=== PATIENT | female | born 1945 | race Two or more races ===

== ENCOUNTER 2016-11-24 08:18 | Inpatient (IN) | payer MEDICAID, MEDICARE ==
[2016-11-24] MEDS ORDERED: SODIUM CHLORIDE 0.9% 3 ML FLUSH FLUSH PRN ×2 (09:14→12:49)
[2016-11-24] MEDS ORDERED: NS 1,000 ML IV ONE ×2 (09:14)
--- NOTE | 2016-11-24 09:25 | EDPRACDOC ---
- General Information Information Source: Patient - History of Present Illness Onset: 2-3 DAYS HPI: COUGH CONGESTION FEVERS CHILLS SOB FOR 2-3 DAYS. PT STATES SHE JUST DOESNT FEEL GOOD. Shortness of Breath: Mild Relevant History: Reports: None Cough: Reports: Non-productive Rhinorrhea: Reports: None Ear Symptoms: Reports: None SOB Worsens with: Reports: Exertion, Coughing SOB Improves with: Reports: Nothing Associated Signs and symptoms: Reports: Cough, Fever, Other (SOB, WEAKNESS) <Rigo Guerrero - Last Filed: 11/24/16 11:56> <Gt Garza - Last Filed: 11/24/16 12:18> - General Information Chief Complaint: Fever Stated Complaint: FEVER/ COUGH Time Seen by Provider: 11/24/16 09:12 Home Medications: Home Medications Simvastatin 40 mg PO HS 02/16/13 Aspirin [Aspirin EC] 81 mg PO DAILY 07/06/14 Allergies/Adverse Reactions: Allergies Allergy/AdvReac Type Severity Reaction Status Date / Time No Known Allergies Allergy Verified 09/06/15 19:26 ED Past Medical History - History Reviewed Yes Nurses notes reviewed and agree except as marked Travel Outside of [place] in the Last 3 Months?: No - Patient Medical History Cardiac History: Reports: Hypercholesterolemia Musculoskeletal History: Reports: Arthritis Psychological History: Denies: Depression Systemic History: Denies: Cancer Surgical History: Reports: Cholecystectomy - Family Medical History Reports: Diabetes, Cardiac Disorders - Social Medical History Smoking Status: Never smoker ETOH: None Substance Abuse: None Lives With: Other Lives In: Home <Rigo Guerrero - Last Filed: 11/24/16 11:56> EDM Review of Systems - Review of Systems ROS Negative Except as Marked: Yes All systems reviewed and were negative except as marked Constitutional: Chills, Fever, Weakness. negative: Fatigue, Loss of Appetite Eyes: No Symptoms Reported. negative: Redness, Blurred Vision, Double Vision, Discharge, Pain, Light Sensitive, Photophobia Ears: No Symptoms Reported. negative: Pain, Hearing Loss, Drainage, Ear Pulling Throat: No Symptoms Reported. negative: Pain, Swelling Nose: No Symptoms Reported. negative: Congestion, Bleeding, Discharge, Injection, Swelling, Deformity, Ecchymosis, Tender, Abrasion, Laceration Mouth: No Symptoms Reported. negative: Pain, Drooling Respiratory: Cough, Shortness of Breath. negative: Barky Cough, Brassy Cough, Hemoptysis, Wheezing Cardiovascular: No Symptoms Reported. negative: Chest Pain, Palpitations, Syncope, Edema, Orthopnea, PND, Skin Mottling, Cyanosis Gastrointestinal: No Symptoms Reported. negative: Pain, Constipation, Nausea, Vomiting, Diarrhea, Melena, Formula Intolerance Genitourinary: No Symptoms Reported. negative: Dysuria, Hematuria, Frequency, Discharge, Bleeding, Testicular Pain, Neurological: No Symptoms Reported. negative: Headache, Dizziness, Seizure, Numbness, Weakness, Speech Difficulty, Gait Difficulty Musculoskeletal: No Symptoms Reported. negative: Neck, Chestwall, Ribs, Back, Shoulder, Arm, Elbow, Forearm, Wrist, Hand, Pelvis, Hip, Femur, Knee, Leg, Ankle , Foot Integumentary: No Symptoms Reported. negative: Itching, Rash, Bruising, Wound Allergic/Immunologic: No Symptoms Reported. negative: Hives, Itching Hematologic: No Symptoms Reported. negative: Lymphadenopathy, Easy Bruising, Easy Bleeding Endocrine: No Symptoms Reported. negative: Weight Gain, Weight Loss Psychiatric: No Symptoms Reported. negative: Anxiety, Depression, Hallucinations, Insomnia, Suicidal <Rigo Guerrero - Last Filed: 11/24/16 11:56> - Physical Exam Constitutional: No apparent distress, Alert (Awake) Oriented to: Time, Person, Place Last recorded Vital Signs: Last Vital Signs Temp 99.7 F 11/24/16 08:32 Pulse 114 11/24/16 08:32 Resp 18 11/24/16 08:32 BP 160/77 11/24/16 08:32 Pulse Ox 92 11/24/16 08:32 Oxygen Pulse Oxygen Saturation 92 O2 Device Room Air Oxygen Flow Rate Fraction of Inspired Oxygen ( FIO2) - HEENT Head: Normal ( normocephalic) Eye Exam: Normal (PERRL, EOMI, Sclera white) Oropharynx: Normal (Pharynx:Moist without exudate,Gums-no swelling) Tympanic Membrane: Normal ENT EAC: Normal TMJ: Normal Nose: No Symptoms Reported (septum midline) Neck: Normal (FROM, trachea at midline) - Respiratory/Cardiovascular Respiratory: Diminished Cardiovascular: Tachycardia - GI Auscultation: Normal (NABS) Palpation: Normal (Soft,No rebound or guarding, non distended) Tenderness: Non tender Qiu's Sign: Negative - Musculoskeletal Back: Normal (Non-Tender) Extremities: Normal (Normal tone, Pulses 2+ No cyanosis or edema, FROM) - Integumentary Skin: Normal, Warm, Dry Lymphatics: Normal (no adenopathy) - Neurologic Memory Impaired: Normal Motor Function: Normal (Normal tone, Pulses 2+ No cyanosis or edema, FROM) Cranial Nerve: Normal (CN II-X11 intact sensation, strength 5/5) Cerebellar: Normal Mood Description: Normal Perception: Normal <Rigo Guerrero - Last Filed: 11/24/16 11:56> - Physical Exam Last recorded Vital Signs: Last Vital Signs Temp 99.7 F 11/24/16 08:32 Pulse 106 11/24/16 11:10 Resp 18 11/24/16 11:10 BP 186/81 H 11/24/16 11:10 Pulse Ox 96 11/24/16 11:10 Oxygen Pulse Oxygen Saturation 96 O2 Device Room Air Oxygen Flow Rate Fraction of Inspired Oxygen ( FIO2) <Gt Garza - Last Filed: 11/24/16 12:18> ED SOB MDM - Differential Diagnosis Differential Diagnosis: Heart Failure, Pnuemonia, Respiratory Failure, Respiratory Insufficiency - Results Result Diagrams: 11/24/16 10:00 11/24/16 09:30 - EKG EKG #1 EKG Time: 08:37 -: Yes EKG interpreted by me Rate: bpm: 113 Theresa: Normal Rhythm: ST Block: None Hypertrophy: LVH ST: Normal - Diagnostic Imaging CXR Image interpreted by: Radiologist Diagnostic Imaging Comments: IMPRESSION: Low volumes. No definite acute disease. <Rigo Guerrero - Last Filed: 11/24/16 11:56> - Results Result Diagrams: 11/24/16 10:00 11/24/16 09:30 Results: WBC 12.0 xk/uL (3.8-10.8) H 11/24/16 10:00 RBC 4.99 xM/uL (4.20-5.40) 11/24/16 10:00 Hgb 14.7 g/dL (12.0-16.0) 11/24/16 10:00 Hct 42.8 % (36-47) 11/24/16 10:00 MCV 86 fL (81-99) 11/24/16 10:00 MCH 29.5 pg (27-32) 11/24/16 10:00 MCHC 34.3 g/dl (33-36) 11/24/16 10:00 RDW 13.4 % (11.5-14.5) 11/24/16 10:00 Plt Count 246 xk/uL (130-400) 11/24/16 10:00 MPV 9.1 fL (7.4-10.4) 11/24/16 10:00 Neut % (Auto) 86.1 % (45-76) H 11/24/16 10:00 Lymph % (Auto) 3.6 % (17-44) L 11/24/16 10:00 [place] % (Auto) 10.0 % (3-10) 11/24/16 10:00 Eos % (Auto) 0.0 % (0-5) 11/24/16 10:00 Baso % (Auto) 0.3 % (0-2) 11/24/16 10:00 Absolute Neuts (auto) 10.32 xk/uL (1.7-8.2) H 11/24/16 10:00 Absolute Lymphs (auto) 0.36 xk/uL (0.65-4.75) L 11/24/16 10:00 PT 10.7 SEC (9.2-11.2) 11/24/16 10:00 INR 1.0 11/24/16 10:00 APTT 28.3 SEC (22-35) 11/24/16 10:00 Puncture Site Right radial 11/24/16 09:37 pH 7.470 pH UNITS (7.35-7.45) H 11/24/16 09:37 pCO2 34.0 mmHg (35-45) L 11/24/16 09:37 pO2 66.0 mmHg (80-100) L 11/24/16 09:37 HCO3 24.7 MMOL/L (22-26) 11/24/16 09:37 Total CO2 25.7 MMOL/L (23-27) 11/24/16 09:37 Base Excess 1.5 (+/- 2) 11/24/16 09:37 FiO2 % 21% 11/24/16 09:37 Specimen Drawn By Si 11/24/16 09:37 Sodium 138 mEq/L (137-146) 11/24/16 09:30 Potassium 3.7 mEq/L (3.5-5.1) 11/24/16 09:30 Chloride 101 mEq/L (98-107) 11/24/16 09:30 Carbon Dioxide 23 mMOL/L (22-33) 11/24/16 09:30 Anion Gap 18 mEq/L (8-16) H 11/24/16 09:30 BUN 19 MG/DL (7-17) H 11/24/16 09:30 Creatinine 0.60 MG/DL (0.52-1.04) 11/24/16 09:30 Estimated GFR (MDRD) > 60 mL/min (>=60) 11/24/16 09:30 Glucose 174 mg/dL (70-99) H 11/24/16 09:30 Calculated Osmolality 272 MOs/Kg (270-290) 11/24/16 09:30 Lactic Acid 2.6 mEq/L (0.7-2.1) H 11/24/16 10:00 Calcium 9.1 MG/DL (8.4-10.2) 11/24/16 09:30 Total Bilirubin 0.7 MG/DL (0.2-1.3) 11/24/16 09:30 AST 42 IU/L (14-36) H 11/24/16 09:30 ALT 46 IU/L (9-52) 11/24/16 09:30 Alkaline Phosphatase 96 IU/L (55-165) 11/24/16 09:30 Troponin I < 0.01 ng/mL (<.04) 11/24/16 09:30 Tgj-C-Hlqgfsvkxlm Pept 972 pg/mL (0-900) H 11/24/16 09:30 Total Protein 8.5 G/DL (6.3-8.2) H 11/24/16 09:30 Albumin 4.4 G/DL (3.5-5.0) 11/24/16 09:30 Urine Color Yellow 11/24/16 09:20 Urine Clarity Cldy 11/24/16 09:20 Urine pH 5.0 (5.0-8.0) 11/24/16 09:20 Ur Specific [place] 1.020 (1.003-1.035) 11/24/16 09:20 Urine Protein 2+ (NEG/TRACE) H 11/24/16 09:20 Urine Glucose (UA) Neg (NEGATIVE) 11/24/16 09:20 Urine Ketones Neg (NEGATIVE) 11/24/16 09:20 Urine Occult Blood 3+ (NEG/TRACE) H 11/24/16 09:20 Urine Nitrite Neg (NEGATIVE) 11/24/16 09:20 Urine Bilirubin Neg (NEGATIVE) 11/24/16 09:20 Urine Urobilinogen <2.0 MG/DL (0-1) 11/24/16 09:20 Ur Leukocyte Esterase Neg (NEGATIVE) 11/24/16 09:20 Urine RBC 10-20 (0-5) H 11/24/16 09:20 Urine WBC 10-20 (0-5) H 11/24/16 09:20 Urine WBC Clumps Present (NONE) H 11/24/16 09:20 Urine Bacteria 2+ (NEG/FEW) H 11/24/16 09:20 Urine Mucus Occ (NEG/OCC) 11/24/16 09:20 Lab Results 11/24/16 11/24/16 11/24/16 10:00 10:00 10:00 WBC 12.0 H RBC 4.99 Hgb 14.7 Hct 42.8 MCV 86 MCH 29.5 MCHC 34.3 RDW 13.4 Plt Count 246 MPV 9.1 Neut % (Auto) 86.1 H Lymph % (Auto) 3.6 L [place] % (Auto) 10.0 Eos % (Auto) 0.0 Baso % (Auto) 0.3 Absolute Neuts (auto) 10.32 H Absolute Lymphs (auto) 0.36 L PT 10.7 INR 1.0 APTT 28.3 Puncture Site pH pCO2 pO2 HCO3 Total CO2 Base Excess FiO2 % Specimen Drawn By Sodium Potassium Chloride Carbon Dioxide Anion Gap BUN Creatinine Estimated GFR (MDRD) Glucose Calculated Osmolality Lactic Acid 2.6 H Calcium Total Bilirubin AST ALT Alkaline Phosphatase Troponin I Aip-C-Koujvxvrnkr Pept Total Protein Albumin Urine Color Urine Clarity Urine pH Ur Specific [place] Urine Protein Urine Glucose (UA) Urine Ketones Urine Occult Blood Urine Nitrite Urine Bilirubin Urine Urobilinogen Ur Leukocyte Esterase Urine RBC Urine WBC Urine WBC Clumps Urine Bacteria Urine Mucus 11/24/16 11/24/16 11/24/16 09:37 09:30 09:20 WBC RBC Hgb Hct MCV MCH MCHC RDW Plt Count MPV Neut % (Auto) Lymph % (Auto) [place] % (Auto) Eos % (Auto) Baso % (Auto) Absolute Neuts (auto) Absolute Lymphs (auto) PT INR APTT Puncture Site Right radial pH 7.470 H pCO2 34.0 L pO2 66.0 L HCO3 24.7 Total CO2 25.7 Base Excess 1.5 FiO2 % 21% Specimen Drawn By Si Sodium 138 Potassium 3.7 Chloride 101 Carbon Dioxide 23 Anion Gap 18 H BUN 19 H Creatinine 0.60 Estimated GFR (MDRD) > 60 Glucose 174 H Calculated Osmolality 272 Lactic Acid Calcium 9.1 Total Bilirubin 0.7 AST 42 H ALT 46 Alkaline Phosphatase 96 Troponin I < 0.01 Fqs-X-Bxwljqwwkzo Pept 972 H Total Protein 8.5 H Albumin 4.4 Urine Color Yellow Urine Clarity Cldy Urine pH 5.0 Ur Specific [place] 1.020 Urine Protein 2+ H Urine Glucose (UA) Neg Urine Ketones Neg Urine Occult Blood 3+ H Urine Nitrite Neg Urine Bilirubin Neg Urine Urobilinogen <2.0 Ur Leukocyte Esterase Neg Urine RBC 10-20 H Urine WBC 10-20 H Urine WBC Clumps Present H Urine Bacteria 2+ H Urine Mucus Occ <Gt Garza - Last Filed: 11/24/16 12:18> - Departure Education/Counseling Given To: Patient Education/Counseling Given Regarding: Diagnosis, Treatment, Prognosis, Follow Up <Rigo Guerrero - Last Filed: 11/24/16 11:56> - Departure Yes I personally saw and evaluated the patient. Disposition: Admit IP To This Hospital Decision to Admit Time: 12:04 Decision to admit date: 11/24/16 Decision to admit: from ED - Physician Consulted Hospitalist Time Called: 12:18 Provider Called: Neeru Skelton Time [employer]ped[employer] Worker Returned Call: 12:18 <Gt Garza - Last Filed: 11/24/16 12:18> - Departure Final Diagnosis: Bronchopneumonia, Hypoxia, Elevated lactic acid level UTI (urinary tract infection) Qualifiers: Urinary tract infection type: acute cystitis Hematuria presence: with hematuria Qualified Code(s): N30.01 - Acute cystitis with hematuria Instructions: Urinary Tract Infection in Women (ED), Bacterial Pneumonia (ED), Dysuria Referrals: None,No Provider [Primary Care Provider] - One Week Prescriptions: No Action Simvastatin 40 mg PO HS Aspirin [Aspirin EC] 81 mg PO DAILY
[2016-11-24 09:36] LABS: LEUKOCYTES/URINE NEG (NEGATIVE); NITRITE/URINE NEG (NEGATIVE); URINE OCCULT BLOOD 3+ (NEG/TRACE)
[2016-11-24 09:41] LABS: ABG Draw Site Right Radial; ABG Draw Tech SI; ALLEN'S TEST PASS; BEb 1.5 (+/- 2); TCO2 25.7 MMOL/L (23-27)
[2016-11-24 09:53] LABS: BLOOD UREA NITROGEN 19 MG/DL (7-17); CALCIUM 9.1 MG/DL (8.4-10.2); CALCULATED OSMOLALITY 272 MOs/Kg (270-290); CHLORIDE 101 mEq/L (98-107); GLUCOSE 174 mg/dL (70-99); SODIUM LEVEL 138 mEq/L (137-146); TOTAL PROTEIN 8.5 G/DL (6.3-8.2)
[2016-11-24] MEDS ORDERED: AZITHROMYCIN 500 MG in D5W 250 ML IV ONE (09:56)
[2016-11-24] MEDS ORDERED: CEFTRIAXONE 2 GM in D5W 100 ML IV ONE (09:56)
--- NOTE | 2016-11-24 10:05 | DIRPT ---
CLINICAL DATA: Cough, shortness of breath, fever, fell last night EXAM: PORTABLE CHEST - 1 VIEW COMPARISON: 01/31/2016 FINDINGS: Low lung volumes with resultant crowding of perihilar and bibasilar bronchovascular structures. Heart size upper limits normal. Atheromatous mildly tortuous thoracic aorta. No pneumothorax or pleural effusion. Visualized skeletal structures are unremarkable. IMPRESSION: Low volumes. No definite acute disease. Electronically Signed By: Verena Eastman M.D. On: 11/24/2016 10:02
[2016-11-24 10:16] LABS: AUTOMATED BASOPHIL 0.3 % (0-2); AUTOMATED LYMPH 3.6 % (17-44); AUTOMATED NEUTROPHIL 86.1 % (45-76); MPV 9.1 fL (7.4-10.4)
[2016-11-24 10:51] LABS: PARTIAL THROMB. TIME 28.3 SEC (22-35)
[2016-11-24] MEDS ORDERED: Albuterol/Ipratropium Neb 3 ML NEB NEB ONE (11:35)
[2016-11-24] MEDS ORDERED: BENZONATATE 100 MG PERLES PO PRN (12:49)
[2016-11-24] MEDS ORDERED: GLUCAGON 1 MG VIAL SQ PRN (12:49)
[2016-11-24] MEDS ORDERED: GLUCOSE (ORAL GEL) 15 GM TUBE PO PRN (12:49)
[2016-11-24] MEDS ORDERED: ACETAMINOPHEN 650 MG SUPP PR PRN (12:49)
[2016-11-24] MEDS ORDERED: DEXTROSE 25 GM/50 ML PFS IV PRN (12:49)
[2016-11-24] MEDS ORDERED: SIMETHICONE 80 MG TAB PO PRN (12:49)
[2016-11-24] MEDS ORDERED: DOCUSATE-SENNA CONCENTRATE TAB PO PRN (12:49)
[2016-11-24] MEDS ORDERED: METOCLOPRAMIDE 10 MG/2 ML VIAL IV PRN (12:49)
[2016-11-24] MEDS ORDERED: ONDANSETRON HCL 4 MG/2 ML VIAL IV PRN (12:49)
[2016-11-24] MEDS ORDERED: TEMAZEPAM 15 MG CAP PO PRN (12:49)
[2016-11-24] MEDS ORDERED: Albuterol/Ipratropium Neb 3 ML NEB NEB PRN (12:57)
[2016-11-24] MEDS: NS 1,000 ML IV ONE ×2 (13:59→14:00)
[2016-11-24] MEDS: NS 1,000 ML IV SCH ×6 (13:59→18:42)
[2016-11-24] MEDS: SODIUM CHLORIDE 0.9% 3 ML FLUSH FLUSH SCH ×2 (14:01→16:50)
--- NOTE | 2016-11-24 14:18 | HISTPHYS ---
- Chief Complaint COUGH, CONGESTION - History of Present Illness Mrs. Melia Smith is a 71 year old woman who states that she began having fever, chills, and a headache and bodyaches 2 days ago. She has a sore throat, and is aching all over now. She has a dry cough and chest congestion. She states that she only vomited one time, otherwise no vomiting but she does not have any appetite. She did not have a flu shot this year nor a pneumonia shot. - Medical History Cardiac History: Reports: Hypercholesterolemia Respiratory History: Reports: No Significant History, Cough GI/ History: Reports: No Significant History Musculoskeletal History: Reports: Arthritis Systemic History: Denies: Cancer Neurological History: Reports: No Significant History Psychological History: Reports: No Significant History. Denies: Depression - Surgical History Reports: Cholecystectomy - Medictions/Allergies Allergies No Known Allergies Allergy (Verified 09/06/15 19:26) Current Medication List: Reviewed Home Medications Simvastatin 40 mg PO HS 02/16/13 Aspirin [Aspirin EC] 81 mg PO DAILY 07/06/14 - Family History Reports: Diabetes, Cardiac Disorders - Social History Travel Outside of [place] in the Last 3 Months?: No Lives: With Family Smoking Status: Never smoker Social History: Denies: Alcohol Use, Substance Use Disorder - Review of Systems Constitutional: Chills, Fever, Loss of Appetite, Weakness Eyes: No Symptoms Reported Ears: No Symptoms Reported Nose: Congestion, Discharge Mouth: Dry Mouth Throat/Neck: Pain, Hoarseness Respiratory: Brassy Cough, Cough, Shortness of Breath, Bronchitis, Dyspnea. negative: Hemoptysis, Wheezing, Sputum Cardiovascular: Chest Pain, Palpitations. negative: Orthopnea, PND, Syncope Gastrointestinal: Nausea, Vomiting, Appetite Changes. negative: Diarrhea, Constipation, Heartburn Genitourinary: Frequency, Postmenopause. negative: Dysuria Neurological: Dizziness, Headache, Weakness Musculoskeletal:: Osteoarthritis, Weakness, Muscle Pain Integumentary: No Symptoms Reported Allergic/Immunologic: No Symptoms Reported Hematologic: No Symptoms Reported Endocrine: negative: Diabetes Psychiatric: No Symptoms Reported - Physical Exam Vital Signs: Initial Vitals Temperature 99.7 F 11/24/16 08:32 Pulse Rate 114 11/24/16 08:32 Respiratory Rate 18 11/24/16 08:32 Blood Pressure 160/77 11/24/16 08:32 Pulse Oxygen Saturation 92 11/24/16 08:32 Constitutional: Alert, Well nourished Oriented to: Time, Person, Place - HEENT Head: Normal Eye: Normal (PERRL; EOMI) Oropharynx: Membranes Dry. negative: Exudate, Red, Tonsillar Hypertrophy Tympanic Membrane: Normal ENT EAC: Normal Nose: Congestion, Discharge (THIN AND WATERY). negative: Bleeding, Deformity Respiratory: Rales, Rhonchi (WORSE ON RIGHT SIDE), Tachypnea. negative: Wheezes Cardiovascular: Tachycardia (REGULAR RHYTHM AND RATE) - GI Auscultation: Normal Palpation: Normal (SOFT, NONTENDER, NONDISTENDED, NO MASS). negative: Enlarged liver, Enlarged spleen, Mass Tenderness: Non tender Qiu's Sign: Negative Rectal Exam: Deferred - Musculoskeletal Back: Normal Extremities: Normal. negative: Edema, Pedal Edema Spine: non-tender, normal alignment, normal inspection - Integumentary Skin: Warm, Dry. negative: Rash Lymphatics: Normal - Neurologic Memory Impaired: Normal Motor Function: Normal Cranial Nerve: Normal Cerebellar: Normal Mood Description: Normal Thought: Coherent Perception: Normal - Focused CV Perfusion Exam Vital Signs: Last Vital Signs Temp 99.7 F 11/24/16 08:32 Pulse 102 11/24/16 13:20 Resp 18 11/24/16 13:20 BP 161/81 11/24/16 13:20 Pulse Ox 95 11/24/16 13:20 - Lab Results Laboratory Tests 11/24/16 11/24/16 11/24/16 09:20 09:30 09:37 WBC Hgb Hct Plt Count Neut % (Auto) Lymph % (Auto) [place] % (Auto) PT INR APTT pH 7.470 H pCO2 34.0 L pO2 66.0 L HCO3 24.7 Total CO2 25.7 Base Excess 1.5 FiO2 % 21% Sodium 138 Potassium 3.7 Chloride 101 Carbon Dioxide 23 Anion Gap 18 H BUN 19 H Creatinine 0.60 Estimated GFR (MDRD) > 60 Glucose 174 H Hemoglobin A1c Calculated Osmolality 272 Lactic Acid Calcium 9.1 Total Bilirubin 0.7 AST 42 H ALT 46 Alkaline Phosphatase 96 Troponin I < 0.01 Wrz-L-Yuqlafqzzrr Pept 972 H Total Protein 8.5 H Albumin 4.4 Urine Color Yellow Urine Clarity Cldy Urine pH 5.0 Ur Specific [place] 1.020 Urine Protein 2+ H Urine Glucose (UA) Neg Urine Ketones Neg Urine Nitrite Neg Urine RBC 10-20 H Urine WBC 10-20 H Urine WBC Clumps Present H Urine Bacteria 2+ H 11/24/16 11/24/16 11/24/16 10:00 10:00 10:00 WBC 12.0 H Hgb 14.7 Hct 42.8 Plt Count 246 Neut % (Auto) 86.1 H Lymph % (Auto) 3.6 L [place] % (Auto) 10.0 PT 10.7 INR 1.0 APTT 28.3 pH pCO2 pO2 HCO3 Total CO2 Base Excess FiO2 % Sodium Potassium Chloride Carbon Dioxide Anion Gap BUN Creatinine Estimated GFR (MDRD) Glucose Hemoglobin A1c Calculated Osmolality Lactic Acid 2.6 H Calcium Total Bilirubin AST ALT Alkaline Phosphatase Troponin I Rcc-P-Aecgqtsllnt Pept Total Protein Albumin Urine Color Urine Clarity Urine pH Ur Specific [place] Urine Protein Urine Glucose (UA) Urine Ketones Urine Nitrite Urine RBC Urine WBC Urine WBC Clumps Urine Bacteria 11/24/16 11/24/16 10:00 12:30 WBC Hgb Hct Plt Count Neut % (Auto) Lymph % (Auto) [place] % (Auto) PT INR APTT pH pCO2 pO2 HCO3 Total CO2 Base Excess FiO2 % Sodium Potassium Chloride Carbon Dioxide Anion Gap BUN Creatinine Estimated GFR (MDRD) Glucose Hemoglobin A1c 6.6 H Calculated Osmolality Lactic Acid Calcium Total Bilirubin AST ALT Alkaline Phosphatase Troponin I < 0.01 Cmh-C-Yjnmpkzeing Pept Total Protein Albumin Urine Color Urine Clarity Urine pH Ur Specific [place] Urine Protein Urine Glucose (UA) Urine Ketones Urine Nitrite Urine RBC Urine WBC Urine WBC Clumps Urine Bacteria - Diagnostic Findings cxr: FINDINGS: Low lung volumes with resultant crowding of perihilar and bibasilar bronchovascular structures. Heart size upper limits normal. Atheromatous mildly tortuous thoracic aorta. No pneumothorax or pleural effusion. Visualized skeletal structures are unremarkable. IMPRESSION: Low volumes. No definite acute disease. Electronically Signed By: Verena Eastman M.D. On: 11/24/2016 10:02 - Assessment (1) Sepsis A41.9 - SEPSIS, UNSPECIFIED ORGANISM Acute Present on Admission: Yes Qualifiers: Sepsis type: sepsis due to unspecified organism Qualified Code(s): A41.9 - Sepsis, unspecified organism Admit- meets criteria for sepsis- she has tachycardia, fever leukocytosis, elevated lactic acid and rales/rhonchi on physical exam suggestive of bronchopneumonia. Will admit patient, obtain blood and sputum cultures, and begin IV antibiotics and aggressive fluid rehydration per sepsis protocol. Source is probably respiratory infection, but she also has UTI. (2) Bronchopneumonia J18.0 - BRONCHOPNEUMONIA, UNSPECIFIED ORGANISM Acute Present on Admission: Yes Patient is meeting criteria for sepsis- she has tachycardia, fever leukocytosis , elevated lactic acid and rales/rhonchi on physical exam suggestive of bronchopneumonia. Will admit patient obtain blood and sputum cultures and begin IV antibiotics and aggressive fluid rehydration per sepsis protocol. (3) Influenza J11.1 - FLU DUE TO UNIDENTIFIED INFLUENZA VIRUS W OTH RESP MANIFEST Suspected Present on Admission: Yes CLINICAL PICTURE CONSISTENT WITH INFLUENZA- will start Tamiflu 75 mg BID x 5 days. (4) Elevated lactic acid level R79.89 - OTHER SPECIFIED ABNORMAL FINDINGS OF BLOOD CHEMISTRY Acute Present on Admission: Yes Repeat lactic acid level in 3-4 hours from initial then again in AM, to evaluate fluid resuscitation. Patient needs 3 L fuid in the first 6H. (5) UTI (urinary tract infection) N39.0 - URINARY TRACT INFECTION, SITE NOT SPECIFIED Acute Present on Admission: Yes Qualifiers: Urinary tract infection type: acute cystitis Hematuria presence: with hematuria Qualified Code(s): N30.01 - Acute cystitis with hematuria Culture urine and begin IV antibiotics with Rocephin. (6) Hypoxia R09.02 - HYPOXEMIA Acute Present on Admission: Yes Provide supplemental oxygen, DuoNebs as needed for wheezing/bronchospasm.
[2016-11-24] MEDS: Albuterol/Ipratropium Neb 3 ML NEB NEB SCH ×2 (14:48→20:44)
[2016-11-24] MEDS: OSELTAMIVIR PHOSPHATE 75 MG CAP PO SCH ×2 (16:11→23:32)
[2016-11-24] MEDS: REGULAR INSULIN 100 UNITS/ML - 3 ML VIAL SQ SCH ×2 (16:53→20:40)
[2016-11-24] MEDS: ENOXAPARIN 40 MG/0.4 ML PFS SQ SCH (16:55)
[2016-11-24] MEDS: ACETAMINOPHEN 325 MG/TAB TABLET PO PRN (20:40)
[2016-11-25] MEDS: Albuterol/Ipratropium Neb 3 ML NEB NEB SCH ×4 (01:17→19:53)
[2016-11-25] MEDS: NS 1,000 ML IV SCH (04:45)
[2016-11-25] MEDS: SODIUM CHLORIDE 0.9% 3 ML FLUSH FLUSH SCH ×4 (04:45→17:06)
[2016-11-25] MEDS: REGULAR INSULIN 100 UNITS/ML - 3 ML VIAL SQ SCH ×4 (06:14→21:52)
[2016-11-25 07:14] LABS: AUTOMATED BASOPHIL 0.3 % (0-2); AUTOMATED LYMPH 19.8 % (17-44); AUTOMATED MONOCYTE 11.9 % (3-10); MPV 9.4 fL (7.4-10.4)
[2016-11-25 07:33] LABS: BLOOD UREA NITROGEN 12 MG/DL (7-17); CALC CORRECTED 8.5 MG/DL (8.4-10.2); CALCIUM 7.9 MG/DL (8.4-10.2); CALCULATED OSMOLALITY 270 MOs/Kg (270-290); CHLORIDE 109 mEq/L (98-107); GLUCOSE 122 mg/dL (70-99); SODIUM LEVEL 140 mEq/L (137-146); TOTAL PROTEIN 6.7 G/DL (6.3-8.2)
[2016-11-25] MEDS ORDERED: FLU VACCINE (Afluria) 0.5 ML DOSE IM ONE (08:00)
[2016-11-25] MEDS ORDERED: PNEUMOCOCCAL 0.5 ML VIAL IM ONE (08:00)
[2016-11-25] MEDS ORDERED: FUROSEMIDE 40 MG/4 ML VIAL IV ONE (08:05)
[2016-11-25] MEDS ORDERED: NS 1,000 ML IV SCH (08:10)
[2016-11-25] MEDS: CEFTRIAXONE 1 GM in D5W 100 ML IV SCH (08:17)
[2016-11-25] MEDS: OSELTAMIVIR PHOSPHATE 75 MG CAP PO SCH ×2 (08:17→21:58)
[2016-11-25] MEDS: NS/KCL 40 mEq 1,000 ML IV SCH (09:23)
[2016-11-25] MEDS: POTASSIUM CHLORIDE 20 MEQ TAB PO SCH ×2 (09:23→17:16)
[2016-11-25] MEDS ORDERED: Vaccine Screening Complete SCH (10:00)
[2016-11-25] MEDS: AZITHROMYCIN 500 MG in D5W 250 ML IV SCH (11:42)
--- NOTE | 2016-11-25 14:08 | GENMEDPROG ---
Chief Complaint: acute lower respiratory infection, parainfluenza virus, UTI, VONDA Subjective Note: patient states she is feeling better today. Currently: Reports: Cough, VALDES, SOB, Fever/Chills. Denies: Wheezing, Diarrhea, Nausea and Vomiting DVT Prophylaxis: Yes - Physical Examination Vital Signs and I&O: Last Vital Signs Temp 98.7 F 11/25/16 05:12 Pulse 98 11/25/16 05:12 Resp 18 11/25/16 05:12 BP 169/74 11/25/16 05:12 Pulse Ox 97 11/25/16 13:44 Oxygen Pulse Oxygen Saturation 97 O2 Device Room Air Oxygen Flow Rate 1 Fraction of Inspired Oxygen ( FIO2) Intake & Output 11/22/16 11/23/16 11/24/16 11/25/16 23:59 23:59 23:59 23:59 Intake Total 4957 1330 Output Total 200 Balance 4757 1330 Patient's weight 75.296 kg 75.296 kg General: Alert, Oriented x3, Cooperative, Mild distress, Weakness HEENT: Normal, PERRLA, EOMI, Anicteric Sclera, Mucous membr. moist/pink Neck: Full range of motion, Normal Trachea alignment, Normal inspection, No Masses palpable Lymphatics: Normal Respiratory: Rales, Rhonchi (WORSE ON RIGHT SIDE), Tachypnea. negative: Wheezes Cardiovascular: Regular rate and rhythm, Normal S1, Normal S2 GI: Normal bowel sounds, Soft, Non tender, No masses Extremities/Musculoskeletal: Normal pulses. negative: Edema Skin: Warm,Dry and Intact, No rashes, No breakdown Neurological: Normal speech, Strength at 5/5 X4 ext, Normal tone, Cranial nerves 3-12 NL Psych/Mental Status: Appropriate, Normal Affect, Cooperative Lab/DI/Studies Reviewed: Laboratory Tests 11/25/16 11/25/16 05:25 11:28 Sodium 140 Potassium 3.4 L Chloride 109 H Carbon Dioxide 23 Anion Gap 11 BUN 12 Creatinine 0.50 L Estimated GFR (MDRD) > 60 Glucose 122 H POC Capillary Glucose 119 H Calculated Osmolality 270 Calcium 7.9 L Corrected Calcium 8.5 Total Bilirubin 0.4 AST 41 H ALT 55 H Alkaline Phosphatase 77 Total Protein 6.7 Albumin 3.4 L Microbiology 11/24/16 09:20 Urine - In/Out Catheter Urine Culture - Preliminary Escherichia coli - Assessment (1) Sepsis Acute A41.9 - SEPSIS, UNSPECIFIED ORGANISM Qualifiers: Sepsis type: sepsis due to unspecified organism Qualified Code(s): A41.9 - Sepsis, unspecified organism Comment/Plan: meets criteria for sepsis- she has tachycardia, fever leukocytosis , elevated lactic acid and rales/rhonchi on physical exam suggestive of bronchopneumonia. Will obtain blood and sputum cultures, and continue IV antibiotics and aggressive fluid rehydration per sepsis protocol. Source is probably respiratory infection, but she also has UTI. (2) Bronchopneumonia Acute J18.0 - BRONCHOPNEUMONIA, UNSPECIFIED ORGANISM Comment/Plan: Patient has rales/rhonchi on physical exam suggestive of bronchopneumonia. Will continue IV antibiotics and aggressive fluid rehydration per sepsis protocol. (3) Influenza Suspected J11.1 - FLU DUE TO UNIDENTIFIED INFLUENZA VIRUS W OTH RESP MANIFEST Comment/Plan: CLINICAL PICTURE CONSISTENT WITH INFLUENZA- will continue Tamiflu 75 mg BID x 5 days. (Day 2) (4) UTI (urinary tract infection) Acute N39.0 - URINARY TRACT INFECTION, SITE NOT SPECIFIED Qualifiers: Urinary tract infection type: acute cystitis Hematuria presence: with hematuria Qualified Code(s): N30.01 - Acute cystitis with hematuria Comment/Plan: Urine Culture is + Escherichia coli, continue IV antibiotics with Rocephin. (5) Elevated lactic acid level Acute R79.89 - OTHER SPECIFIED ABNORMAL FINDINGS OF BLOOD CHEMISTRY Comment/ Plan: Repeat lactic acid level in 3-4 hours from initial then again in AM, to evaluate fluid resuscitation. Patient needs 3 L fuid in the first 6H. (6) Hypoxia Acute R09.02 - HYPOXEMIA Comment/Plan: Provide supplemental oxygen, DuoNebs as needed for wheezing/bronchospasm.
[2016-11-25] MEDS: ENOXAPARIN 40 MG/0.4 ML PFS SQ SCH (17:17)
[2016-11-26] MEDS: Albuterol/Ipratropium Neb 3 ML NEB NEB SCH ×4 (01:21→20:20)
[2016-11-26] MEDS: SODIUM CHLORIDE 0.9% 3 ML FLUSH FLUSH SCH ×3 (05:31→18:30)
[2016-11-26] MEDS: NS/KCL 40 mEq 1,000 ML IV SCH ×2 (05:31→21:54)
[2016-11-26] MEDS: REGULAR INSULIN 100 UNITS/ML - 3 ML VIAL SQ SCH ×4 (05:33→21:55)
[2016-11-26 06:17] VITALS: BMI 29.2
[2016-11-26 07:15] LABS: MPV 9.5 fL (7.4-10.4)
[2016-11-26 07:41] LABS: BLOOD UREA NITROGEN 8 MG/DL (7-17); CALCIUM 8.3 MG/DL (8.4-10.2); CALCULATED OSMOLALITY 265 MOs/Kg (270-290); CHLORIDE 103 mEq/L (98-107); GLUCOSE 122 mg/dL (70-99); SODIUM LEVEL 138 mEq/L (137-146)
[2016-11-26] MEDS ORDERED: FLU VACCINE (Afluria) 0.5 ML DOSE IM ONE (08:00)
[2016-11-26] MEDS ORDERED: PNEUMOCOCCAL 0.5 ML VIAL IM ONE (08:00)
--- NOTE | 2016-11-26 09:21 | DIRPT ---
CLINICAL DATA: Fever and chills. EXAM: CHEST 2 VIEW COMPARISON: 11/24/2016. FINDINGS: Mediastinum and hilar structures are normal. Heart size stable. Mild right lower lobe infiltrate noted. No pleural effusion or pneumothorax. No acute bony abnormality . IMPRESSION: Mild right lower lobe infiltrate. Electronically Signed By: Dickson Ramos On: 11/26/2016 09:19
[2016-11-26] MEDS: POTASSIUM CHLORIDE 20 MEQ TAB PO SCH ×2 (09:59→18:29)
[2016-11-26] MEDS: OSELTAMIVIR PHOSPHATE 75 MG CAP PO SCH ×2 (10:01→21:54)
[2016-11-26] MEDS: CEFTRIAXONE 1 GM in D5W 100 ML IV SCH (10:01)
[2016-11-26] MEDS: AZITHROMYCIN 500 MG in D5W 250 ML IV SCH ×2 (11:47→12:11)
--- NOTE | 2016-11-26 13:45 | GENMEDPROG ---
Chief Complaint: Patient still feels a bit short of breath. Subjective Note: 71-year-old female admitted to our hospital with acute lower respiratory tract infection. Chest x-ray today reveals pneumonia which was suspected. Notes Reviewed: Yes: Events from last night noted and discussed with Clinical Staff Current Medication List: Reviewed Currently: Reports: Cough, VALDES, SOB, Fever/Chills. Denies: Wheezing, Diarrhea, Nausea and Vomiting DVT Prophylaxis: Yes - Physical Examination Vital Signs and I&O: Last Vital Signs Temp 98.5 F 11/26/16 06:17 Pulse 87 11/26/16 06:17 Resp 18 11/26/16 06:17 BP 150/82 11/26/16 06:17 Pulse Ox 94 11/26/16 08:09 Oxygen Pulse Oxygen Saturation 94 O2 Device Room Air Oxygen Flow Rate 1 Fraction of Inspired Oxygen ( FIO2) Intake & Output 11/23/16 11/24/16 11/25/16 11/26/16 23:59 23:59 23:59 23:59 Intake Total 4957 [id number] 736 Output Total 200 Balance 4757 3334 736 Patient's weight 75.296 kg 75.296 kg 72.62 kg General: Alert, Oriented x3, Cooperative, Mild distress, Weakness HEENT: Normal, PERRLA, EOMI, Anicteric Sclera, Mucous membr. moist/pink Neck: Full range of motion, Normal Trachea alignment, Normal inspection, No Masses palpable Lymphatics: Normal Respiratory: Rales, Rhonchi (WORSE ON RIGHT SIDE), Tachypnea. negative: Wheezes Cardiovascular: Regular rate and rhythm, Normal S1, Normal S2 GI: Normal bowel sounds, Soft, Non tender, No masses Extremities/Musculoskeletal: Normal pulses. negative: Edema Skin: Warm,Dry and Intact, No rashes, No breakdown Neurological: Normal speech, Strength at 5/5 X4 ext, Normal tone, Cranial nerves 3-12 NL Psych/Mental Status: Appropriate, Normal Affect, Cooperative Lab/DI/Studies Reviewed: Abnormal Lab Results 11/25/16 11/25/16 11/26/16 16:17 20:49 06:30 WBC Potassium 3.3 L Creatinine 0.40 L Glucose 122 H POC Capillary Glucose 100 H 101 H Calculated Osmolality 265 L Calcium 8.3 L 11/26/16 11/26/16 06:30 11:22 WBC 11.4 H Potassium Creatinine Glucose POC Capillary Glucose 149 H Calculated Osmolality Calcium EXAM: CHEST 2 VIEW COMPARISON: 11/24/2016. FINDINGS: Mediastinum and hilar structures are normal. Heart size stable. Mild right lower lobe infiltrate noted. No pleural effusion or pneumothorax. No acute bony abnormality . IMPRESSION: Mild right lower lobe infiltrate. Electronically Signed By: Dickson Ramos On: 11/26/2016 09:19 - Assessment (1) Sepsis Acute A41.9 - SEPSIS, UNSPECIFIED ORGANISM Qualifiers: Sepsis type: sepsis due to unspecified organism Qualified Code(s): A41.9 - Sepsis, unspecified organism Comment/Plan: Sepsis has resolved continue present therapy. (2) Bacterial pneumonia Acute J15.9 - UNSPECIFIED BACTERIAL PNEUMONIA Comment/Plan: Chest x-ray consistent with acute bacterial pneumonia continue current IV antibiotics. Check ambulating room air sats in a.m.. (3) Influenza Suspected J11.1 - FLU DUE TO UNIDENTIFIED INFLUENZA VIRUS W OTH RESP MANIFEST Comment/Plan: CLINICAL PICTURE CONSISTENT WITH INFLUENZA- will continue Tamiflu 75 mg BID x 5 days. (Day 3) (4) UTI (urinary tract infection) Acute N39.0 - URINARY TRACT INFECTION, SITE NOT SPECIFIED Qualifiers: Urinary tract infection type: acute cystitis Hematuria presence: with hematuria Qualified Code(s): N30.01 - Acute cystitis with hematuria Comment/Plan: E coli URINARY TRACT INFECTION. Currently on Rocephin which sensitivity show is active against this E coli. (5) Elevated lactic acid level Inactive R79.89 - OTHER SPECIFIED ABNORMAL FINDINGS OF BLOOD CHEMISTRY Comment/Plan: Repeat lactic acid level in 3-4 hours from initial then again in AM, to evaluate fluid resuscitation. Patient needs 3 L fuid in the first 6H. (6) Hypoxia Inactive R09.02 - HYPOXEMIA Comment/Plan: Provide supplemental oxygen, DuoNebs as needed for wheezing/bronchospasm. (7) Bronchopneumonia Ruled-out J18.0 - BRONCHOPNEUMONIA, UNSPECIFIED ORGANISM Comment/Plan: Patient has rales/rhonchi on physical exam suggestive of bronchopneumonia. Will continue IV antibiotics and aggressive fluid rehydration per sepsis protocol. - Plan Continue current IV antibiotics. Check ambulating O2 sats in a.m.. If stable consider discharge home Disposition Plan: Likely home in a.m. Case Care Discussed with: Patient, Nursing Staff Education/Counseling Given To: Patient Education/Counseling Given Regarding: Diagnosis, Treatment, Prognosis, Disposition Plan Total Time: 45 minutes Critical Care: No Couseling Time (>50% in counseling/coordination): No
[2016-11-26] MEDS: ENOXAPARIN 40 MG/0.4 ML PFS SQ SCH (18:29)
[2016-11-27] MEDS: NS/KCL 40 mEq 1,000 ML IV SCH (00:08)
[2016-11-27] MEDS: Albuterol/Ipratropium Neb 3 ML NEB NEB SCH ×3 (02:10→13:35)
[2016-11-27] MEDS: SODIUM CHLORIDE 0.9% 3 ML FLUSH FLUSH SCH (05:42)
[2016-11-27] MEDS: REGULAR INSULIN 100 UNITS/ML - 3 ML VIAL SQ SCH ×2 (05:42→11:12)
[2016-11-27] MEDS: OSELTAMIVIR PHOSPHATE 75 MG CAP PO SCH (07:53)
[2016-11-27] MEDS: POTASSIUM CHLORIDE 20 MEQ TAB PO SCH (07:53)
[2016-11-27 08:05] LABS: AUTOMATED BASOPHIL 0.6 % (0-2); AUTOMATED EOSINOPHIL 0.3 % (0-5); AUTOMATED MONOCYTE 8.8 % (3-10); AUTOMATED NEUTROPHIL 63.3 % (45-76); MPV 9.1 fL (7.4-10.4)
[2016-11-27 08:19] LABS: BLOOD UREA NITROGEN 9 MG/DL (7-17); CALCIUM 8.5 MG/DL (8.4-10.2); CALCULATED OSMOLALITY 268 MOs/Kg (270-290); CHLORIDE 106 mEq/L (98-107); GLUCOSE 115 mg/dL (70-99); SODIUM LEVEL 139 mEq/L (137-146)
[2016-11-27] MEDS ORDERED: AZITHROMYCIN 250 MG TAB PO SCH (09:00)
[2016-11-27] MEDS: CEFTRIAXONE 1 GM in D5W 100 ML IV SCH (10:03)
--- NOTE | 2016-11-27 13:54 | PCM.DCS92 ---
- Final/Secondary Discharge Diagnosis (1) Bacterial pneumonia Acute J15.9 - UNSPECIFIED BACTERIAL PNEUMONIA Comment: Chest x-ray consistent with acute bacterial pneumonia continue current IV antibiotics. Check ambulating room air sats in a.m.. (2) Influenza Suspected J11.1 - FLU DUE TO UNIDENTIFIED INFLUENZA VIRUS W OTH RESP MANIFEST Present on Admission: Yes Comment: CLINICAL PICTURE CONSISTENT WITH INFLUENZA- will continue Tamiflu 75 mg BID x 5 days. (Day 3) (3) UTI (urinary tract infection) Acute N39.0 - URINARY TRACT INFECTION, SITE NOT SPECIFIED Present on Admission: Yes acute cystitis with hematuria N30.01 - Acute cystitis with hematuria Comment: E coli URINARY TRACT INFECTION. Currently on Rocephin which sensitivity show is active against this E coli. (4) Bronchopneumonia Ruled-out J18.0 - BRONCHOPNEUMONIA, UNSPECIFIED ORGANISM Present on Admission: Yes Comment: Patient has rales/rhonchi on physical exam suggestive of bronchopneumonia. Will continue IV antibiotics and aggressive fluid rehydration per sepsis protocol. (5) Sepsis Resolved A41.9 - SEPSIS, UNSPECIFIED ORGANISM Present on Admission: Yes sepsis due to unspecified organism A41.9 - Sepsis, unspecified organism Comment: Sepsis has resolved continue present therapy. Discharge Disposition: Home Discharge Condition: Good Cognitive Discharge Status: Unimpaired Fuctional Discharge Status: Independent Physician Follow up/Referrals: Luz Marina Fatima MD [Staff Physician] - Two Weeks Home Medications / New Prescriptions: New Oseltamivir Phosphate [Tamiflu] 75 mg PO BID #4 capsule Azithromycin [Zithromax] 250 mg PO DAILY #3 tablet Continue Simvastatin 40 mg PO HS Aspirin [Aspirin EC] 81 mg PO DAILY Discharge Home Medication List Simvastatin 40 mg PO HS 02/16/13 [History Confirmed 11/24/16] Aspirin [Aspirin EC] 81 mg PO DAILY 07/06/14 [History Confirmed 11/24/16] Azithromycin [Zithromax] 250 mg PO DAILY #3 tablet 11/27/16 [Rx] Cefuroxime [Ceftin] 250 mg PO Q12H #6 tablet 11/27/16 [Rx] Oseltamivir Phosphate [Tamiflu] 75 mg PO BID #4 capsule 11/27/16 [Rx] New Discharge Medications (Rx) Azithromycin [Zithromax] 250 mg PO DAILY #3 tablet 11/27/16 [Rx] Cefuroxime [Ceftin] 250 mg PO Q12H #6 tablet 11/27/16 [Rx] Oseltamivir Phosphate [Tamiflu] 75 mg PO BID #4 capsule 11/27/16 [Rx] O2 Device: Room Air Diet at Discharge: As Tolerated, Regular Activity: No Restrictions, As Tolerated Call Office For: Worsening Symptoms, Fever over 100.5, Pain Uncontrolled By Meds - DC Summary Notes Hospital Course Note:: Discharge summary on patient named MELVI BEARD admitted to [facility] on 11/24/16 by Neeru Skelton MD. Date of discharge is []. Very pleasant female 71 years old presented to our facility with body aches and generalized weakness and fever she was found to have negative flu test was felt to have a flu-like illness and started on Tamiflu. She was also thought to have pneumonia and chest x-ray did reveal a pneumonia. She has improved significantly her oxygen requirement is now none she is currently on room air. She has reached maximal benefit of hospitalization with treatment for pneumonia and influenza. She will discharge home to complete her antibiotic course of Tamiflu, azithromycin, and Ceftin. Patient is stable for discharge home. Total Time: 45 min - Physical Exam Vital Signs: Last Vital Signs Temp 98.8 F 11/27/16 05:44 Pulse 86 11/27/16 07:22 Resp 16 11/27/16 07:22 BP 135/81 11/27/16 05:44 Pulse Ox 95 11/27/16 07:22 Oxygen Pulse Oxygen Saturation 95 O2 Device Room Air Oxygen Flow Rate 1 Fraction of Inspired Oxygen ( FIO2) Constitutional: Alert, Well nourished Oriented to: Time, Person, Place - HEENT Head: Normal Eye: Normal (PERRL; EOMI) Oropharynx: Membranes Dry. negative: Exudate, Red, Tonsillar Hypertrophy Tympanic Membrane: Normal ENT EAC: Normal Nose: Congestion, Discharge (THIN AND WATERY). negative: Bleeding, Deformity - Respiratory/Cardiovascular Respiratory: Rales, Rhonchi (WORSE ON RIGHT SIDE), Tachypnea. negative: Wheezes - GI Auscultation: Normal Palpation: Normal (SOFT, NONTENDER, NONDISTENDED, NO MASS). negative: Enlarged liver, Enlarged spleen, Mass Tenderness: Non tender Qiu's Sign: Negative Rectal Exam: Deferred - Musculoskeletal Back: Normal Extremities: Normal. negative: Edema, Pedal Edema - Integumentary Skin: Normal (Warm dry no rashes) Lymphatics: Normal - Neurologic Memory Impaired: Normal Motor Function: Normal (Motor 5/5 throughout.Normal tone, Pulses 2+ No cyanosis or edema, FROM) Cranial Nerve: Normal (CN II-XII intact sensation, strength 5/5) Cerebellar: Normal Mood Description: Normal Thought: Coherent Perception: Normal
[2016-11-27 15:06] VITALS: BP 126/61; PULSE 89; TEMP 98
[2016-11-27] MEDS: ACETAMINOPHEN 325 MG/TAB TABLET PO PRN (16:37)
== END 2016-11-27 17:24 | disposition home or self-care (01) | DRG 871 ==
LOC: ED 08:18 → MPS3 12:49
PROVIDERS: ADMIT Family Medicine; ATTEND Hospitalist
PROC: 4A033R1 Measurement of Arterial Saturation, Peripheral, Percutaneous Approach (ICD-10-PCS; principal; 2016-11-24)
DX: A41.9 Sepsis, unspecified organism (principal); J11.08 Influenza due to unidentified influenza virus with specified pneumonia; J15.9 Unspecified bacterial pneumonia; N30.01 Acute cystitis with hematuria; B96.20 Unspecified Escherichia coli [E. coli] as the cause of diseases classified elsewhere; E78.00 Pure hypercholesterolemia, unspecified; M19.90 Unspecified osteoarthritis, unspecified site; R79.89 Other specified abnormal findings of blood chemistry; R09.02 Hypoxemia; Z90.49 Acquired absence of other specified parts of digestive tract; Z79.82 Long term (current) use of aspirin; Z28.21 Immunization not carried out because of patient refusal
CPT/HCPCS: 36415; 36600; 71010; 71020; 80048; 80053; 81001; 82803; 82962; 83036; 83605; 83735; 83880; 84484; 85025; 85027; 85610; 85730; 87040; 87077; 87086; 87186; 87804; 87880; 90656; 90732; 93005; 94640; 96361; 96365; 96366; 96372; 99284; G0237; J0456; J0696; J1650; J1940; J3490; J7030; J7060; J7070; J7620